=== PATIENT | female | born 1970 | race Two or more races ===

== ENCOUNTER → 2016-11-14 | Outpatient (CLI) | payer SELFPAY ==
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
== END | disposition home or self-care (01) ==
LOC: CMRI 06:01
DX: M21.061 Valgus deformity, not elsewhere classified, right knee (principal); M22.41 Chondromalacia patellae, right knee
CPT/HCPCS: 73721